=== PATIENT | male | born 1990 | race African-American/Black ===

== ENCOUNTER 2022-02-13 09:28 | Emergency (ER) | payer SELFPAY ==
[2022-02-13] MEDS ORDERED: Ondansetron PF 4 MG/2 ML Vial ONE (10:57)
[2022-02-13 11:48] LABS: Bacteria/HPF None Seen HPF (None Seen); Bilirubin Negative (Negative); Blood, Urine Negative (Negative); Clarity Clear (Clear); Glucose, Urine (Dipstick) Normal (Negative); Ketone, Urine 10 mg/dL (Negative); Leukocyte Negative Leu/uL (Negative); Nitrite Negative (Negative); Protein, Urine (Dipstick) 50 mg/dL (Neg-Trace); RBC/HPF 0-3 HPF (0-3); Specific Gravity, Urine 1.028 (1.002-1.036); Squamous Epithelial None Seen HPF (0-3); Urobilinogen Normal mg/dL (Less than 2); WBC/HPF 0-3 HPF (0-3); pH, Urine 8.5 (5.0-9.0)
[2022-02-13 12:13] LABS: SARS-CoV-2 NAA Rapid Test Not Detected (NotDetected)
== END 2022-02-13 12:35 | disposition home or self-care (01) ==
LOC: ERS 09:28
DX: B34.9 Viral infection, unspecified (principal); Z20.822 Contact with and (suspected) exposure to COVID-19
CPT/HCPCS: 81003; 81015; 87804; 96361; 96374; J2405; U0003; U0005

== ENCOUNTER 2024-02-03 22:24 | Emergency (ER) | payer MEDICAID, SELFPAY ==
[2024-02-04] MEDS ORDERED: Lidocaine 2% PF 5 ML VIAL ONE (00:43)
== END 2024-02-04 01:27 | disposition home or self-care (01) ==
LOC: ERS 22:24
DX: S90.851A Superficial foreign body, right foot, initial encounter (principal); W22.8XXA Striking against or struck by other objects, initial encounter
CPT/HCPCS: 99283